=== PATIENT | female | born 1995 | race Caucasian/White ===

== ENCOUNTER 2018-12-15 08:00 | Outpatient (CLI) | payer OTHER | END 2018-12-15 23:59 | disposition home or self-care (01) | LOC: LAB.R 08:00 | PROVIDERS: ATTEND Nurse Practitioner Obstetrics & Gynecology | DX: Z36.9 Encounter for antenatal screening, unspecified (principal) | CPT/HCPCS: 87491; 87591; 87797 ==

== ENCOUNTER 2018-12-15 10:19 | Outpatient (CLI) | payer OTHER ==
[2018-12-15 10:56] LABS: HGB - HEMOGLOBIN 11.8 g/dL (12.0-16.0); MEAN CORPUSCULAR HEMOGLOBIN 27.9 pg (27.0-31.0); MEAN CORPUSCULAR HGB CONC 33.2 g/dL (32.0-36.0); RED BLOOD COUNT 4.21 10^6/uL (4.20-5.40); RED CELL DISTRIBUTION WIDTH 13.4 % (12.0-15.0); WHITE BLOOD COUNT 7.8 x10^3/uL (4.8-10.8)
[2018-12-16 11:51] LABS: HEPATITIS C ANTIBODY NON-REACTIVE (NON-REACTIVE)
[2018-12-16 13:12] LABS: HIV AG/AB 4TH GEN NON-REACTIVE (NON-REACTIVE)
[2018-12-17 13:41] LABS: HSV 1 IGG TYPE SPECIFIC AB <0.90 index; HSV 2 IGG TYPE SPECIFIC AB <0.90 index
== END 2018-12-15 10:20 | disposition home or self-care (01) ==
LOC: LAB 10:19
PROVIDERS: ATTEND Nurse Practitioner Obstetrics & Gynecology
DX: Z36.9 Encounter for antenatal screening, unspecified (principal); O99.019 Anemia complicating pregnancy, unspecified trimester
CPT/HCPCS: 36415; 81599; 85027; 86592; 86695; 86696; 86803; 87389

== ENCOUNTER 2019-01-22 00:34 | Inpatient (IN) | payer OTHER ==
[2019-01-22] MEDS ORDERED: SODIUM CHLORIDE FLUSH 0.9% 10 ML SYRINGE IVP PRN (01:26)
[2019-01-22] MEDS ORDERED: ONDANSETRON 4 MG/2 ML VIAL IVP PRN ×2 (01:26→04:39)
--- NOTE | 2019-01-22 01:43 | HISTORY & PHYSICAL EXAMINATION ---
Admit History - Visit Reason Visit Reason: Contractions, Membranes rupture - : 1 Parity: 0 Premature: 0 Ectopic: 0 : 0 Care: positive: [facility] Risk/History: positive: None Complications This : positive: None Smoking Status: Never smoker - Mother's Labs Mother's Blood Type: positive: O Mother's RH: positive: Positive GBS: positive: Group B Strep Positive Rubella Status: positive: Immune Meds/Allgy - Allergies Allergies/Adverse Reactions: Allergies Allergy/AdvReac Type Severity Reaction Status Date / Time No Known Drug Allergies Allergy Verified 01/22/19 01:40 Review of Systems - Constitutional Constitutional: denies: Fever, Chills, Malaise - Eyes Eyes: denies: Blurred vision, Spots in vision, Dipolpia - Cardiovascular Cariovascular: denies: Irregular heart rate, Palpitations, Chest pain, Edema - Respiratory Respiratory: denies: Cough, Wheezing, SOB at rest - Gastrointestinal Gastrointestinal: denies: Abdominal pain, Constipation, Diarrhea, Nausea, Vomiting - Integumentary Integumentary: denies: Rash, Pruritis - Neurological Neurological: denies: Headache - Psychiatric Psychiatric: denies: Depression, Anxiety Physical - Abdominal Exam Vital Signs: Temp Pulse Resp BP Pulse Ox 37.1 C 72 20 133/75 H 99 01/22/19 01:01 01/22/19 01:01 01/22/19 01:01 01/22/19 01:20 01/22/19 01:01 Contraction Frequency (min/apart): 2-4 Contraction Intensity: positive: Moderate Uterine Resting Tone: positive: Soft - Monitoring Heart Rate Baseline: 130 Strip Review: positive: Category I - Presentation Presentation: positive: Vertex - Vaginal Exam Membranes: positive: Membranes ruptured Dilation (in cm): 3 Effacement (%): 80 Station: positive: -2 Cervical Position: positive: Midposition - Speculum Exam Speculum Exam Performed: positive: No Findings: positive: Gross leak Plan for Labor - Plan For Labor I expect patient to be DC'd or transferred within 96 hours.: Yes Plan for Labor: HPI: This is a 23yo @ 40.3wks gestation by 10.3wk agree who presented on 01/22/2019 with c/o contractions since 1430 on 01/21/2019 and large gush of watery fluid from her vagina at 0000 on 01/22/2019. She states she has continued to experience leakage of clear vaginal fluid since that time. She reports a light pink-tinged discharge prior to her gush of fluid but otherwise denies vaginal bleeding. Reports +FM. She has been a patient of [facility] since 35.0wks gestation when she transferred from [facility] where she received regular care through the duration of her . She has had an uneventful thus far. LMP 04/14/2018 Initial ultrasound at 10.3 weeks - disagrees. Patient dated by 10.3wk U/S Serial exams - agree PMHx: Anemia Surgical Hx: Oral surgery Social Hx: Never smoker, no ETOH or IVDA. Medications: PNV Allergies: NKDA Family Hx: Asthma - father labs: Hgb 11.8; Hct 35.4, PLT 230 Blood type O pos, antibody neg Rubella immune RPR non-reactive HIV non-reactive GC/CT neg Hep B neg Hep C neg 1 hour GTT 109 GBS POSITIVE Immunizations: Tdap 12/12/2018 Ultrasound: FAS WNL; Anterior placenta, no previa. SAMANTHA WNL. Physical Exam: Normocephalic, atraumatic PERRLA Heart RRR w/o M/G/R Lungs CTAB Abdomen gravid, soft, nontender SVE 3/80/-2, vertex, medium consistency Grossly ruptured membranes Bilateral LE's no edema Assessment: 23yo @ 40.3wks gestation by 10.3wk U/S Early labor SROM x 2 hours FHT Category I GBS positive Plan: Admit for expectant management of labor Initiate antibiotic prophylaxis for GBS positive status per protocol Intermittent monitoring Epidural per patient request Anticipate spontaneous vaginal delivery
[2019-01-22] MEDS ORDERED: AMPICILLIN 2 GM in SODIUM CHLORIDE 0.9% MINIBAG 100 ML IV SCH (02:00)
[2019-01-22] MEDS: LACTATED RINGERS 1,000 ML IV SCH ×2 (02:30→04:23)
[2019-01-22 02:43] LABS: BASOPHILS # (AUTO) 0.1 10^3/uL (0.0-0.1); BASOPHILS % (AUTO) 0.7 %; EOSINOPHILS # (AUTO) 0.1 10^3/uL (0.0-0.7); EOSINOPHILS % (AUTO) 0.5 %; HGB - HEMOGLOBIN 12.3 g/dL (12.0-16.0); LYMPHOCYTES # (AUTO) 2.3 10^3/uL (1.5-3.5); LYMPHOCYTES % (AUTO) 22.4 %; MEAN CORPUSCULAR HGB CONC 32.9 g/dL (32.0-36.0); MEAN CORPUSCULAR VOLUME 82.1 fL (81.0-99.0); MEAN PLATELET VOLUME 8.8 fL (7.9-10.8); MONOCYTES # (AUTO) 0.7 10^3/uL (0.0-1.0); MONOCYTES % (AUTO) 6.4 %; NEUTROPHILS # (AUTO) 7.3 10^3/uL (1.5-6.6); PLT - PLATELET COUNT 212 10^3/uL (130-450); RED BLOOD COUNT 4.56 10^6/uL (4.20-5.40); WHITE BLOOD COUNT 10.4 x10^3/uL (4.8-10.8)
--- NOTE | 2019-01-22 03:49 | ANESTHESIA ---
Pre-Anesthesia VS, & Labs - Diagnosis active labor - Procedure labor epidural Vital Signs: Temp Pulse Resp BP Pulse Ox 37.1 C 72 20 133/75 H 99 01/22/19 01:01 01/22/19 01:01 01/22/19 01:01 01/22/19 01:20 01/22/19 01:01 Height 5 ft 8 in Weight (kg) 95.708 kg - NPO >8 hours - Is Patient ?: Yes - Lab Results Current Lab Results: Laboratory Tests 01/22/19 02:28: WBC 10.4, RBC 4.56, Hgb 12.3, Hct 37.4, MCV 82.1, MCH 27.0, MCHC 32.9, RDW 14.0, Plt Count 212, MPV 8.8, Neut # (Auto) 7.3 H, Lymph # (Auto) 2.3, [place] # (Auto) 0.7, Eos # (Auto) 0.1, Baso # (Auto) 0.1, Absolute Nucleated RBC 0.00, Nucleated RBC % 0.0 Fish Bones: 01/22/19 02:28 Home Medications and Allergies Active Medications Ampicillin Sodium 2 gm/ Sodium (Chloride) 100 mls @ 100 mls/hr IV ONCE YUSEF Stop: 01/22/19 05:00 Last Admin: 01/22/19 02:39 Dose: 100 mls/hr Ampicillin Sodium 1 gm/ Sodium (Chloride) 100 mls @ 200 mls/hr IV Q4H [facility] Lactated Ringer's (Lr) 1,000 mls @ 150 mls/hr IV .Q6H40M [facility] Last Admin: 01/22/19 02:30 Dose: 150 mls/hr Ondansetron HCl (Zofran Inj) 4 mg IVP Q4H PRN PRN Reason: Nausea / Vomiting Sodium Chloride (Normal Saline Flush 0.9%) 10 ml IVP PRN PRN PRN Reason: NEEDED PER PROVIDER ORDERS Last Admin: 01/22/19 02:38 Dose: 10 ml Sodium Chloride (Normal Saline Flush 0.9%) 10 ml IVP 0100,0900,1700 [facility] Allergies/Adverse Reactions: Allergies Allergy/AdvReac Type Severity Reaction Status Date / Time No Known Drug Allergies Allergy Verified 01/22/19 01:40 Anes History & Medical History - Anesthetic History Anesthesia Complications: reports: No previous complications Family history of Anesthesia Complications: Denies Family history of Malignant Hyperthermia: Denies - Medical History Smoking Status: Never smoker - Obstetrical History : 1 Parity: 0 Events: positive: None Complications: positive: None Exam General: Alert, Oriented x3, Cooperative, No acute distress Dental: WNL Mouth Openin Fingerbreadth Neck Mobility: Normal Mallampati classification: III Thyromental Distance: greater than 6 cm Respiratory: Lungs clear, Normal breath sounds, No respiratory distress, No accessory muscle use Cardiovascular: Regular rate, Normal S1, Normal S2, No murmurs Plan Anesthesia Type: Epidural Consent for Procedure(s) Verified and Reviewed: Yes Code Status: Attempt Resuscitation ASA classification: 2-Mild systemic disease Is this case an emergency?: No
[2019-01-22] MEDS ORDERED: fent/BUPIV 2 MCG/0.125% 250 ML EP ONE (04:27)
[2019-01-22] MEDS ORDERED: LACTATED RINGERS 500 ML IV ONE (04:39)
[2019-01-22] MEDS ORDERED: METOCLOPRAMIDE 10 MG/2 ML VIAL IVP PRN (04:39)
[2019-01-22] MEDS ORDERED: NALBUPHINE 10 MG/ML AMP IVP PRN (04:39)
[2019-01-22] MEDS ORDERED: diphenhydrAMINE INJ 50 MG/ML VIAL IVP PRN (04:39)
[2019-01-22] MEDS ORDERED: fent/BUPIV 2 MCG/0.125% 250 ML EP PRN (04:39)
[2019-01-22] MEDS ORDERED: NALOXONE 0.4 MG/ML VIAL IVP PRN (04:39)
[2019-01-22] MEDS ORDERED: ePHEDrine 50 MG/ML VIAL IVP PRN (04:39)
[2019-01-22] MEDS ORDERED: AMPICILLIN 1 GM in SODIUM CHLORIDE 0.9% MINIBAG 100 ML IV SCH (06:00)
[2019-01-22] MEDS ORDERED: OXYTOCIN/SODIUM CHLORIDE 500 ML IV PRN ×2 (07:13→09:35)
[2019-01-22] MEDS ORDERED: SODIUM CHLORIDE FLUSH 0.9% 10 ML SYRINGE IVP SCH (09:00)
[2019-01-22] MEDS ORDERED: HYDROCORTISONE 1% CREAM 28 GM TUBE PR PRN (09:34)
[2019-01-22] MEDS ORDERED: WITCH HAZEL/GLYCERIN 1 EACH MED..PAD TOP PRN (09:34)
--- NOTE | 2019-01-22 10:50 | DELIVERY NOTE ---
Delivery Note - Labor Labor: positive: Spontaneous - Delivery Method Delivery Method: positive: Spontaneous vaginal delivery - Presentation Presentation: positive: Vertex, AMADEO - left occiput anterior - Nuchal Cord Nuchal Cord: positive: None - Amniotic Fluid Description Amniotic Fluid Description: positive: Clear - Episiotomy Type Episiotomy Type: positive: None - Laceration Laceration: positive: 1st degree, 2nd degree, Periurethral, Vaginal - Suture Suture Type: positive: Vicryl Suture Size: positive: 2-0, 4-0 - Delivery Outcome Delivery Outcome: positive: Livebirth - : positive: Placed in direct skin contact with mother, Bulb syringe, Stimulated, Warmed, [place] used sex: positive: Female - Cord Cord: positive: 3 vessels - Placenta Placenta: positive: Intact, Spontaneous - Estimated Blood Loss Estimated Blood Loss (in cc): 250 - Post Delivery Events Post Delivery Events: positive: No post delivery events - Delivery Comments (Free Text/Narrative) Delivery Comments (Free Text/Narrative): This 23yo @ 40.3wks gestation by first trimester U/S presented at 0125 on 01/22/2019 in early labor and SROM at 0000. Cervix was 3/80/-2, vertex with grossly ruptured membranes. FHR pattern demonstrated Category II pattern. She was noted to be GBS positive and received 2 total doses of Ampicillin per protocol. Normal labor course. Epidural per maternal request. The patient progressed to c/c/+2 at 0810 and began pushing at 0818. Normal of viable female at 0835 on 01/22/2019. No nuchal cord. Body cord x 1 - infant easily delivered through. 's 8/9 at 1 and 5 min respectively. The was placed upon maternal abdomen, stimulated, dried, and placed skin to skin. Pitocin administered via IV for hemostasis. The umbilical cord was allowed to stop pulsating at which time it was doubly clamped by CNM and cut by patient's mother. 3VC. Cord blood was obtained. Placenta delivered spontaneously and intact at 0837. EBL 250mL. Uterine fundus firm and there is no excessive bleeding. The perineum, vagina, and cervix were inspected and found to have 2nd degree vaginal laceration which was repaired using a 2-[address]-1 needle in standard fashion under sterile conditions. In addition there was noted to be a right periurethral laceration which was repaired using a 4-0 vicryl on an SH needle in standard fashion under sterile conditions. Vaginal and rectal examinations following repair were done. Tissues well approximated. initiated. Family bonding well. Both mother and infant were left in stable condition.
[2019-01-22] MEDS: IBUPROFEN 800 MG TABLET PO SCH ×3 (11:15→21:56)
[2019-01-22] MEDS: ACETAMINOPHEN 500 MG TABLET PO SCH ×2 (11:15→21:55)
[2019-01-23] MEDS: IBUPROFEN 800 MG TABLET PO SCH ×3 (08:02→22:41)
--- NOTE | 2019-01-23 08:44 | Discharge Plan ---
Discharge Plan Disposition: 01 Home, Self Care Condition: Good Diet: Regular Activity Restrictions: No Restrictions Shower Restrictions: No Driving Restrictions: No Weight Bearing: Full Weight No Smoking: If you smoke, Please STOP! Call for help. Follow-up with: Sharri Franz CNM, ARNP [Provider Admit Priv/Credential] -
--- NOTE | 2019-01-23 08:56 | PROVIDER PROGRESS NOTE ---
Subjective - Subjective Subjective: PPD#1 S: Bonding well with baby. with some difficulty and is experien cing some nipple tenderness bilaterally. She tried the nipple shield but felt that caused more discomfort. Bleeding decreased. Reports tenderness to perineum and cramping with nursing. Pain is well controlled with oral medications and she rates her pain 3/10. Mom is supportive at the bedside. O: 122/67, HR 36.7, RR 18, HR 69 Heart RRR w/o M/G/R, lungs CTAB, abdomen soft and nontendner with fundus firm at U. Perineum intact, repair with edema. Light lochia rubra. Bilateral LE's no edema. A: 23yo -->p1 PPD#1 s/p TSVD of viable female infant 2nd degree perineal laceration - intact P: Continue routine care and medications with specific attention to today. Plan for discharge home tomorrow. Pt verbalized understanding and agrees to above plan. denies further questions or concerns at this time. Objective - Vital Signs/Intake & Output Vital Signs: Vital Signs x48h Temp Pulse Resp BP Pulse Ox 01/23/19 07:45 36.7 C 69 18 122/67 96 01/23/19 04:00 37 C 76 18 120/74 Intake & Output: Intake & Output 01/20/19 01/21/19 01/22/19 01/23/19 23:59 23:59 23:59 23:59 Intake Total 3600 Output Total 1020 Balance 2580 - Lab Results Fish Bones: 01/22/19 02:28
[2019-01-23] MEDS: ACETAMINOPHEN 500 MG TABLET PO SCH ×2 (13:06→21:07)
[2019-01-23] MEDS ORDERED: DOCUSATE SODIUM 100 MG CAPSULE PO SCH (21:30)
[2019-01-24] MEDS: ACETAMINOPHEN 500 MG TABLET PO SCH (05:16)
[2019-01-24] MEDS: IBUPROFEN 800 MG TABLET PO SCH (05:16)
--- NOTE | 2019-01-24 09:04 | Discharge Plan ---
Discharge Plan Disposition: 01 Home, Self Care Condition: Good Activity Restrictions: No Restrictions Shower Restrictions: No Driving Restrictions: No Weight Bearing: Full Weight No Smoking: If you smoke, Please STOP! Call for help. Follow-up with: Sharri Franz CNM, ARNP [Provider Admit Priv/Credential] -
--- NOTE | 2019-01-24 09:06 | PROVIDER PROGRESS NOTE ---
Subjective - Subjective Subjective: FINAL PROGRESS NOTE: S: Bonding well with baby. without difficulty and much improved from yesterday. She does express some concern about how vigorous the is at the breast but has been attempting to correct the latch if improper. Bleeding decreased and is light. Pain well controlled with oral medications. Mother supportive at the bedside. They desire to go home today. O: BP 110/55, RR 16, HR 59, T 36.7, Heart RRR w/o M/G/R, lungs CTAB, abdomen soft and nontender with fundus firm at U-1, perineum intact and repair with mild edema, bilateral LE's no edema. A: 23yo G1PO-->P1 PPD#2 s/p TSVD of viable female infant 2nd degree perineal laceration - intact P: Discharge home today on PPD#2 Reviewed self care and warning s/sx Continue PNV while OTC ibuprofen and tylenol for pain management PRN Rx handwritten and provided to pt for all purpose nipple ointment F/u in 1 week for support visit & 3 weeks for routine visit. Pt and mother verbalized understanding and agree to above plan. They deny furt her questions or concerns at this time. Objective - Vital Signs/Intake & Output Vital Signs: Vital Signs x48h Temp Pulse Pulse Resp BP BP Pulse Ox 01/24/19 08:41 36.6 C 73 18 122/58 L 97 01/24/19 03:35 36.7 C 59 L 16 110/55 L 100 Intake & Output: Intake & Output 01/21/19 01/22/19 01/23/19 01/24/19 23:59 23:59 23:59 23:59 Intake Total 3600 Output Total 1020 Balance 2580 - Lab Results Fish Bones: 01/22/19 02:28
[2019-01-24 12:47] VITALS: BP 121/62
--- NOTE | 2019-01-24 18:31 | DISCHARGE SUMMARY ---
Physician: FRANK Schaffer DATE OF ADMISSION: 01/22/2019 DATE OF DISCHARGE: 01/24/2019 DIAGNOSES ON ADMISSION 1. A 23-year-old G1, P0, at 40.3 weeks gestation. 2. Early labor. 3. Spontaneous rupture of membranes x2 hours. 4. Group B streptococcus positive. DIAGNOSES ON DISCHARGE 1. A 23-year-old G1, P1-0-0-1 status post spontaneous vaginal delivery on 01/23/2019. 2. . 3. Second-degree perineal laceration intact. 4. Normal recovery. BRIEF HISTORY: Radha is a patient of [facility] who presented on 01/22/2019 in early labor and spontaneous rupture of membranes x2 hours. Cervix was 3 cm dilated, 80% effaced, -2 station in vertex position with grossly ruptured membranes. She was noted to be GBS positive and received 2 total doses of ampicillin per protocol. Epidural placed per maternal request. Normal labor course. She progressed to spontaneously deliver a viable female at 0835 on 01/22/2019. 's were 8 and 9 at 1 and 5 minutes respectively. EBL 250 mL. The perineum, vagina and cervix were inspected and found to have second-degree vaginal/perineal laceration, which was repaired using a 2-[address]-1 needle in standard fashion under sterile conditions. She has been doing well in her course. She is ambulating and tolerating a regular diet. She is urinating without difficulty and her lochia is normal. Her pain is well controlled with oral medications. She will be discharged home today on day 2 with prescription for all-purpose nipple ointment and instructions to take [id number] ibuprofen or Tylenol for pain management as needed. She has been advised to continue her vitamin while . She intends to followup with myself at [facility] in one week for support visit and in 3 weeks for routine visit. She has been given precautions to call if she has any worsening fevers, chills, abdominal pain, increased bleeding or foul-smelling vaginal lochia. TD: 01/24/2019 09:14 [facility]
== END 2019-01-24 13:30 | disposition home or self-care (01) | DRG 807 ==
LOC: WFO 00:34 → FBP 00:36 → WFO 01:24 → FBP 01:25 → OBS 12:33 → FBP 12:33 → UNDODISIN 01-24 13:30
PROVIDERS: ADMIT Nurse Practitioner Obstetrics & Gynecology; ATTEND Nurse Practitioner Obstetrics & Gynecology
PROC: 10E0XZZ Delivery of Products of Conception, External Approach (ICD-10-PCS; principal; 2019-01-22)
PROC: 0KQM0ZZ Repair Perineum Muscle, Open Approach (ICD-10-PCS; 2019-01-22)
PROC: 0UQMXZZ Repair Vulva, External Approach (ICD-10-PCS; 2019-01-22)
DX: O99.824 Streptococcus B carrier state complicating childbirth (principal); Z37.0 Single live birth; O70.1 Second degree perineal laceration during delivery; O71.82 Other specified trauma to perineum and vulva; O69.82X0 Labor and delivery complicated by other cord entanglement, without compression, not applicable or unspecified; Z3A.40 40 weeks gestation of pregnancy
CPT/HCPCS: 85025; 99213; A9270; J2300; J7120; 36415